=== PATIENT | male | born 1970 | race Two or more races ===

== ENCOUNTER 2019-09-04 17:05 | Emergency (ER) | payer OTHER ==
[~2019-09-04] VITALS: Ht 182.9 cm; Wt 90.7 kg
== END 2019-09-04 21:49 | disposition home or self-care (01) ==
LOC: ER 17:05
DX: B34.9 Viral infection, unspecified (principal)

== ENCOUNTER 2019-09-05 21:19 | Emergency (ER) | payer OTHER ==
[~2019-09-05] VITALS: Ht 182.9 cm; Wt 90.7 kg
[2019-09-06] MEDS ORDERED: MUCINEX SINUS-1 EAC3 PO (12:17)
[2019-09-06] MEDS ORDERED: AMOX1TAB5 PO (12:17)
== END 2019-09-06 13:14 | disposition home or self-care (01) ==
LOC: ER 21:19
DX: B34.9 Viral infection, unspecified (principal); R50.9 Fever, unspecified; J01.80 Other acute sinusitis

== ENCOUNTER 2020-01-23 13:13 | Outpatient (CLI) | payer OTHER ==
[~2020-01-23 13:13] MED LIST: AMOX1TAB5 PO; MUCINEX SINUS-1 EAC3 PO
== END 2020-01-23 13:23 | disposition home or self-care (01) ==
LOC: SONOGRAMA 13:13
DX: K40.90 Unilateral inguinal hernia, without obstruction or gangrene, not specified as recurrent (principal)

== ENCOUNTER 2023-12-21 05:15 | Emergency (ER) | payer OTHER ==
[~2023-12-21] VITALS: Ht 182.9 cm; Wt 90.7 kg
[2023-12-21] MEDS ORDERED: KETOROLAC TROMETHAMINE 60 MG VIAL IM STA (07:44)
[2023-12-21] MEDS ORDERED: CEFTRIAXONE SODIUM 1,000 MG VIAL IM STA (07:44)
[2023-12-21] MEDS ORDERED: KETO10TA2 PO (07:58)
[2023-12-21] MEDS ORDERED: CEPHALEXIN500 MG PO (07:58)
== END 2023-12-21 08:10 | disposition home or self-care (01) ==
LOC: ER 05:15
DX: H60.92 Unspecified otitis externa, left ear (principal)